=== PATIENT | female | born 1975 | race Two or more races ===

== ENCOUNTER 2023-11-19 16:23 | Emergency (ER) | payer OTHER ==
[~2023-11-19] VITALS: Ht 160 cm; Wt 79.1 kg
[~2023-11-19 16:23] MED LIST: NO HOME MEDS
[2023-11-19 16:39] VITALS: BP 114/77; PULSE 92; RESP 16; TEMP 98.2; O2SAT 98
== END 2023-11-20 06:29 | disposition home or self-care (01) ==
LOC: ER 16:23
DX: S61.230A Puncture wound without foreign body of right index finger without damage to nail, initial encounter (principal); Z88.8 Allergy status to other drugs, medicaments and biological substances; W27.3XXA Contact with needle (sewing), initial encounter; Y93.89 Activity, other specified; Y92.89 Other specified places as the place of occurrence of the external cause; Y99.8 Other external cause status
CPT/HCPCS: 36415; 80074; 86703; 99283